=== PATIENT | female | born 1975 | race Caucasian/White ===

== ENCOUNTER 2018-08-22 16:33 | Emergency (ER) | payer BC ==
[~2018-08-22] VITALS: Ht 152.4 cm; Wt 77.6 kg
[2018-08-22 16:33] VITALS: BP_SYST 138
--- NOTE | 2018-08-22 16:33 | NUR ---
BROUGHT BACK TO BED #7 AND TRIAGED. REPORT GIVEN TO ELEN
--- NOTE | 2018-08-22 16:49 | NUR ---
Pt AAOx4 ambulated into ED c/o 12/02 lower abdominal pain described as "twisting pressure" with nausa and vomiting since yesterday. PT has hx of hiatal hernia and states it may be an "hernia attack." Pt unable to tolerate food. No other injuries/complaints per pt/noted. Will continue to monitor.
--- NOTE | 2018-08-22 16:55 | NUR ---
ER Dr. west at bedside examining patient.
[2018-08-22] MEDS ORDERED: NACL 0.9% 1,000 ML IV ONE (17:01)
[2018-08-22] MEDS ORDERED: MORPHINE 4 MG/ML INJ. SYRINGE IVP ONE (17:15)
[2018-08-22] MEDS ORDERED: ONDANSETRON HCL 4 MG/2 ML VIAL IVP ONE (17:15)
--- NOTE | 2018-08-22 17:21 | NUR ---
Pt taken to radiology via gurney in stable condition
--- NOTE | 2018-08-22 17:40 | NUR ---
Pt returned from radiology via wheelchair in stable condition
[2018-08-22 17:55] LABS: BILIRUBIN,URINE NEGATIVE (NEGATIVE); BLOOD, URINE NEGATIVE (NEGATIVE); CLARITY/URINE CLEAR (CLEAR); COLOR,URINE YELLOW (YELLOW); GLUCOSE,URINE NEGATIVE (NEGATIVE); KETONES,URINE 3+ (NEGATIVE); LEUKOCYTE ESTERASE ,URINE NEGATIVE (NEGATIVE); NITRITE, URINE NEGATIVE (NEGATIVE); PROTEIN URINE TRACE (NEGATIVE); UROBILINOGEN,URINE 0.2 (0.2-1.0)
[2018-08-22 17:56] LABS: MEAN CORPUSCULAR HEMOGLOBIN 29 pg (27-31); MEAN CORPUSCULAR HGB CONC 33 % (32-36); MEAN CORPUSCULAR VOLUME 87 fL (79.0-98.0); PLATELET COUNT (AUTO) 238 K/uL (130-430); RED BLOOD CELL COUNT(AUTO) 4.85 MIL/uL (4.2-6.2); RED CELL DISTRIBUTION WIDTH 14.7 % (9.0-15.0); WHITE BLOOD COUNT (AUTO) 6.8 K/uL (4.8-10.8)
[2018-08-22 18:03] LABS: BACTERIA,URINE FEW /HPF (None Seen); MUCUS,URINE None Seen /LPF (None Seen); RBC,URINE 0-3 /HPF (0-3); WBC,URINE 0-3 /HPF (0-3)
[2018-08-22 18:10] LABS: CREATININE 0.75 mg/dL (0.55-1.30); POTASSIUM 3.6 mmol/L (3.5-5.1)
[2018-08-22 18:13] LABS: INR 0.9 (0.8-1.2); PROTHROMBIN TIME 9.5 SECS (9.5-12.5)
[2018-08-22 18:14] LABS: TOTAL BILIRUBIN 0.8 mg/dL (0.0-1.0)
[2018-08-22 18:31] LABS: ATYPICAL LYMPHOCYTES % 0 % (0-0); BAND % (MANUAL) 0 % (0-6); BASOPHILS % (MANUAL) 0 % (0-2); EOSINOPHILS % (MANUAL) 0 % (0-7); LYMPHOCYTES % (MANUAL) 3 % (20-46); MONOCYTES % (MANUAL) 4 % (0-11)
[2018-08-22] MEDS ORDERED: PANTOPRAZOLE SODIUM 40 MG/VIAL (PROTONIX) IVP ONE (18:45)
[2018-08-22 18:56] LABS: BARBITURATE, URINE NEGATIVE (NEG <=200); BENZODIAZEPINE, URINE NEGATIVE (NEG <=150); CANNABINOID, URINE NEGATIVE (NEG <=50); COCAINE, URINE NEGATIVE (NEG <=150); METHAMPHETAMINES SCREEN,URINE NEGATIVE (NEG <=500); OPIATE, URINE NEGATIVE (NEG <=100); PHENCYCLIDINE SCREEN,URINE NEGATIVE (NEG <=25); UR TRICYCLIC ANTIDEPRESSANTS NEGATIVE (NEG <=300); URINE AMPHETAMINE NEGATIVE (NEG <=500); URINE METHADONE NEGATIVE (NEG <=200); URINE OXYCODONE SCREEN NEGATIVE (NEG <=100); URINE PROPOXYPHENE SCREEN NEGATIVE (NEG <=300)
--- NOTE | 2018-08-22 19:08 | NUR ---
Patient given written and verbal discharge instructions and verbalizes understanding. ER MD discussed with patient the results and treatment provided. Patient in stable condition. ID arm band removed. IV catheter removed intact and dressing applied, no active bleeding. Rx of MAALOX, TRAMADOL, ZOFRAN given. Patient educated on pain management and to follow up with PMD. Pain Scale 3/10 TOLERABLE. Opportunity for questions provided and answered. Medication side effect fact sheet provided.
[2018-08-22 19:09] VITALS: BP_SYST 138
== END 2018-08-22 19:09 | disposition home or self-care (01) ==
LOC: SED 16:33
DX: K29.70 Gastritis, unspecified, without bleeding (principal); E03.9 Hypothyroidism, unspecified; I10 Essential (primary) hypertension; Z88.5 Allergy status to narcotic agent; Z87.442 Personal history of urinary calculi; Z88.6 Allergy status to analgesic agent
CPT/HCPCS: 36415; 74176; 80053; 80307; 81000; 81025; 83690; 84484; 84703; 85007; 85027; 85610; 85730; 93005; 96361; 96374; 96375; 99284; C9113; J2270; J2405; J7030

== ENCOUNTER 2018-12-11 08:41 | Emergency (ER) | payer BC ==
[~2018-12-11] VITALS: Ht 152.4 cm; Wt 77.1 kg
--- NOTE | 2018-12-11 08:46 | NUR ---
Juan Alberto babin in [facility] - 12/11/18 at 0913 by [email or web address] Patient to IRON [facility] for evaluation. Side rails up.
[2018-12-11 08:50] VITALS: BP_SYST 132
--- NOTE | 2018-12-11 08:52 | NUR ---
Juan Alberto babin in [facility] - 12/11/18 at 0855 by DAPHNE IRON Gonzalez at bedside examining patient.
[2018-12-11 08:58] VITALS: BP_SYST 128
--- NOTE | 2018-12-11 08:58 | NUR ---
Patient to ER bed 3 to gown for evaluation. Side rails up.
--- NOTE | 2018-12-11 09:00 | NUR ---
PATIENT CAME IN COMPLAINING OF RIGHT UPPER ABDOMINAL PAIN FOR PAST 2-3 WEEKS. PATIENT STATES PAIN INTERMITENT. PATIENT COMPLAINING OF 4/10 PAIN AT MOMENT BUT CAN GET UP TO 7/10 SHARP PAIN. PATIENT DENIES NAUSEA AND VOMITING. PATIENT COMPLAINING OF SOME SOB. PATIENT'S LMP WAS ABOUT 2 WEEKS AGO. PATIENT IS ALERT AND ORIENTED X4.
--- NOTE | 2018-12-11 09:11 | NUR ---
ER Dr. TOMLINSON at bedside examining patient.
--- NOTE | 2018-12-11 09:25 | NUR ---
PATIENT GETTING LABS DRAWN AT BEDSIDE.
--- NOTE | 2018-12-11 09:34 | NUR ---
PATIENT LEFT TO ULTRA SOUND IN STABLE CONDITION.
[2018-12-11 09:47] LABS: CALCIUM 8.9 mg/dL (8.4-11.0); CREATININE 0.84 mg/dL (0.55-1.30); POTASSIUM 4.4 mmol/L (3.5-5.1)
--- NOTE | 2018-12-11 09:48 | NUR ---
PATIENT BACK FROM [facility] IN STABLE CONDITION.
[2018-12-11 09:52] LABS: ALBUMIN 3.7 g/dL (3.4-4.8); BASOPHILS # (AUTO) 0.1 K/uL (0.0-0.2); BASOPHILS % (AUTO) 1.4 % (0.0-2.0); EOSINOPHILS # (AUTO) 0.1 K/uL (0.0-0.4); EOSINOPHILS % (AUTO) 2.4 % (0.0-4.0); HEMATOCRIT 38.5 % (36-48); HEMOGLOBIN 12.8 g/dL (12.0-16.0); LYMPHOCYTES # (AUTO) 1.4 K/uL (1.0-5.5); LYMPHOCYTES % (AUTO) 31.2 % (20.5-51.5); MEAN CORPUSCULAR HEMOGLOBIN 29 pg (27-31); MEAN CORPUSCULAR HGB CONC 33 % (32-36); MEAN CORPUSCULAR VOLUME 88 fL (79.0-98.0); MONOCYTES # (AUTO) 0.4 K/uL (0.0-1.0); MONOCYTES % (AUTO) 9.3 % (1.7-9.3); NEUTROPHILS # (AUTO) 2.4 K/uL (1.8-7.7); NEUTROPHILS % (AUTO) 55.7 % (40.0-70.0); PLATELET COUNT (AUTO) 247 K/uL (130-430); TOTAL BILIRUBIN 0.4 mg/dL (0.0-1.0); WHITE BLOOD COUNT (AUTO) 4.3 K/uL (4.8-10.8)
--- NOTE | 2018-12-11 10:29 | NUR ---
DR TOMLINSON AT BEDSIDE TALKING TO PATIENT ABOUT RESULTS.
--- NOTE | 2018-12-11 10:42 | NUR ---
Patient given written and verbal discharge instructions and verbalizes understanding. ER MD discussed with patient the results and treatment provided. Patient in stable condition. ID arm band removed. NO Rx given. Patient educated on pain management and to follow up with PMD. Pain Scale 3/10 TOLERABLE. Opportunity for questions provided and answered. Medication side effect fact sheet provided.
[2018-12-11 10:43] VITALS: BP_SYST 137
== END 2018-12-11 10:43 | disposition home or self-care (01) ==
LOC: SED 08:41
DX: R10.11 Right upper quadrant pain (principal); E03.9 Hypothyroidism, unspecified; I10 Essential (primary) hypertension; Z88.5 Allergy status to narcotic agent; Z88.6 Allergy status to analgesic agent; Z87.442 Personal history of urinary calculi
CPT/HCPCS: 36415; 76700-TC; 80053; 83690-TC; 85025; 99284

== ENCOUNTER 2020-04-05 12:54 | Emergency (ER) | payer BC ==
[~2020-04-05] VITALS: Ht 152.4 cm; Wt 74.8 kg
[2020-04-05 13:22] VITALS: BP_SYST 165
[2020-04-05 13:31] VITALS: BP_SYST 158
== END 2020-04-05 16:25 | disposition still patient (30) ==
LOC: SED 12:54
DX: I10 Essential (primary) hypertension (principal); Z53.21 Procedure and treatment not carried out due to patient leaving prior to being seen by health care provider